=== PATIENT | male | born 1985 ===

== ENCOUNTER → 2024-04-08 09:28 | Outpatient (REF) | payer OTHER, SELFPAY | LOC: EMG 09:28 | PROVIDERS: ATTENDING PHYSICIAN Orthopaedic Surgery Hand Surgery; FAMILY PHYSICIAN Family Medicine Geriatric Medicine | DX: G56.03 Carpal tunnel syndrome, bilateral upper limbs (principal); R20.0 Anesthesia of skin | CPT/HCPCS: 95886; 95911 ==